=== PATIENT | male | born 1995 | race Caucasian/White ===

== ENCOUNTER 2019-12-26 13:58 | Emergency (ER) | payer OTHER, SELFPAY ==
[2019-12-26 14:09] VITALS: BP 116/74; PULSE 74; RESP 16; TEMP 36.8; O2SAT 98
--- NOTE | 2019-12-26 14:18 | ED.ABDPAIN ---
HPI - Abdominal Pain General Chief Complaint: Unspecified Stated Complaint: rx refill Time Seen by Provider: 12/26/19 14:00 Source: patient and family Mode of arrival: ambulatory Limitations: no limitations History of Present Illness HPI narrative: Patient is a 24-year-old male with a history of depression and anxiety presenting with mother noting that he is between physicians and is going to run out of his Klonopin and Celexa this week patient notes that his mother's friend had called him in some but now is between physicians. And will run out of medication. Patient denies other symptoms or complaints. Patient denies suicidal or homicidal ideation. Patient notes that he has been on these medications long-term Related Data Allergies Allergy/AdvReac Type Severity Reaction Status Date / Time No Known Allergies Allergy Unknown Verified 12/26/19 14:11 Review of Systems Review of Systems: All systems reviewed & are unremarkable except as noted in HPI and below PMFSH Past Medical History Medical History Anxiety Depression Social History Social History (Updated 12/26/19 @ 14:20 by Satya Benz PA-C) Smoking status: Current every day smoker Gender identity (if verbalized by the patient): Male Exam Narrative: Exam Narrative: GENERAL: Well-appearing, well-nourished, and in no acute distress. HEAD: Normocephalic, atraumatic. EYES: PERRLA and EOMI. ENT: Nares clear, no rhinorrhea or epistaxis. Mucous membranes moist. CHEST: Clear to auscultation. No respiratory distress. No wheezes rales or rhonchi HEART: Regular rate and rhythm. No murmur heard. EXTREMITIES: Normal range of motion. No edema. SKIN: Warm, dry, no rash. NEURO: No focal deficits. Alert and oriented x3. Cranial nerves II through XII grossly intact PSYCH: Normal mood and affect. Course Course Emergency Course: Patient in the room in no distress aware of case findings treatment plan and diagnosis Vital Signs Vital signs: Vital Signs Temperature 98.3 F 12/26/19 14:09 Pulse Rate 74 12/26/19 14:09 Respiratory Rate 16 12/26/19 14:09 Blood Pressure 116/74 12/26/19 14:09 Pulse Oximetry 98 12/26/19 14:09 Temperature 98.3 F 12/26/19 14:09 Pulse Rate 74 12/26/19 14:09 Respiratory Rate 16 12/26/19 14:09 Blood Pressure 116/74 12/26/19 14:09 Pulse Oximetry 98 12/26/19 14:09 MDM - Abdominal Pain MDM Narrative Medical decision making narrative: Patient in the room in no distress advised to follow with primary care for discussion of refilling his medication and management of his anxiety and depression patient was given the bulk of physicians on staff at this facility and provided with reasons to return Discharge Plan Discharge Clinical Impression: Encounter for medication refill Patient Disposition: Home, Self-Care Condition: Stable Instructions: Antibiotic Form, Medicine Refill (ED) Additional Instructions: Follow up with your primary care doctor in 5-7 days for re-evaluation. Go to ER for worsening pain, vision changes, nausea/vomiting, fever/chills, weakness, chest pain, shortness of breath, numbness/tingling, slurred speech, difficulty walking, change in mental status etc. or any other concerns. Any thoughts of harming yourself or others contact 911 or return to emergency department Take any prescribed medications as directed. Follow-up/Referrals: PHYSICIAN NOT ON STAFF,NONSTAFF [Non-Staff] - Young Garza MD [Physician] -
[2019-12-26 14:57] VITALS: BP 118/75; PULSE 78; RESP 16; O2SAT 100
== END 2019-12-26 14:59 | disposition home or self-care (01) ==
PROVIDERS: Emergency Provider Emergency Medicine
DX: F32.9 Major depressive disorder, single episode, unspecified (principal); F41.9 Anxiety disorder, unspecified; F17.200 Nicotine dependence, unspecified, uncomplicated
CPT/HCPCS: 99281